=== PATIENT | female | born 1950 | race African-American/Black ===

== ENCOUNTER 2019-07-29 06:01 | Day surgery (SDC) | payer BC, MEDICAID, MEDICARE, OTHER ==
--- NOTE | 2019-07-25 14:37 | Opthalmology H&P ---
Ophthalmology H&P H&P Chief Complaint: decreased vision in right eye HPI Vision Affects Ability to: read, focus/use eyes together, manage personal affairs HPI Narrative Blurry vision Exam Visual Acuity: OD Coounting fingers OS 20/25 Tension: OD 12 OS 11 Eye Exam: normal OU: external exam, palpebral fissure-width, marginal reflex distance, levator function, corneas, anterior chambers, fundus exam; findings: lens - +4 PSC Cataract OD Assessment/Plan Treatment Plan: cataract extraction w/ lens implant Goals of Treatment: improvement of vision, enhance quality of life Attestation Attestation The risks and benefits of the surgery as well as alternative procedures were explained to the patient in detail. Brandon Stone MD Jul 25, 2019 14:37
--- NOTE | 2019-07-25 14:39 | Pre-Procedure Note/Attestation ---
Pre-Procedure Note/Attestation Complete Prior to Procedure Planned Procedure: right Procedure Narrative: Cataract extraction with IOL implant right eye Indications for Procedure Pre-Operative Diagnosis: Posterior subcapsular cataract right eye Attestation I attest that I discussed the nature of the procedure; its benefits; risks and complications; and alternatives (and the risks and benefits of such alternatives ), prior to the procedure, with the patient (or the patient's legal sales representative [employer]). I attest that, if there was a reasonable possibility of needing a blood transfusion, the patient (or the patient's legal sales representative [employer]) was given the [facility] standardized written summary, pursuant to the Fredi Nino Blood Safety Act ([place] Health and Safety Code # 1645, as amended). I attest that I re-evaluated the patient just prior to the surgery and that there has been no change in the patient's H&P, except as documented below: Brandon Stone MD Jul 25, 2019 14:39
[2019-07-29] VITALS (8 sets, daily range): BP systolic 121–135; BP diastolic 69–78
[~2019-07-29] VITALS: Ht 175.3 cm; Wt 74.8 kg
[~2019-07-29 06:01] MED LIST: AMLODIPINE BESYL5 MG ORAL; HYDROCHLOROTHIA25 MG ORAL
[2019-07-29] MEDS: Tropicamide 1% Opth 15ml Soln RIGHT EYE SCH ×3 (06:31→06:47)
[2019-07-29] MEDS: Cyclopentolate 1% Opth Sol 2ml RIGHT EYE SCH ×3 (06:32→06:47)
[2019-07-29] MEDS: Tobramycin Op Soln 0.3% 5ml RIGHT EYE SCH ×3 (06:32→06:47)
[2019-07-29] MEDS: Phenylephrine 10% Opth Soln 5ml RIGHT EYE SCH ×3 (06:32→06:47)
[2019-07-29] MEDS ORDERED: Tetracaine 0.5% Opth 4ml Soln RIGHT EYE ONE (07:00)
[2019-07-29] MEDS ORDERED: Proparacaine 0.5% Opth Soln 15ml RIGHT EYE ONE (07:00)
[2019-07-29] MEDS ORDERED: Akten 3.5% 1ml Btl RIGHT EYE ONE (07:00)
[2019-07-29] MEDS ORDERED: Diclofenac Sod 0.1% Op Soln RIGHT EYE SCH (07:00)
[2019-07-29] MEDS ORDERED: BSS 500ml btl ONE (07:15)
[2019-07-29] MEDS ORDERED: BSS 15ml BTL ONE (07:15)
[2019-07-29] MEDS ORDERED: Povidone-Iodine 5% opth solution ONE (07:16)
[2019-07-29] MEDS ORDERED: Sodium Hyaluronate 10 mg/ml 0.85ml ONE ×2 (07:16→08:37)
[2019-07-29] MEDS ORDERED: LR 1000ml ONE (07:30)
[2019-07-29] MEDS ORDERED: NS Irrig 1000ml ONE (07:30)
[2019-07-29] MEDS ORDERED: Sterile Water Irrig 1000ml IRRIG ONE (07:30)
[2019-07-29] MEDS ORDERED: Midazolam 2mg/2ml Inj ONE (07:48)
[2019-07-29] MEDS ORDERED: fentaNYL 100 mcg/2 mL IV ONE (07:48)
--- NOTE | 2019-07-29 08:32 | Immediate Post-Op Evaluation ---
Immediate Post-Op Evalulation Immediate Post-Op Evalulation Procedure: cataract extraction right eye with IOL Date of Evaluation: Jul 29, 2019 Time of Evaluation: 08:32 IV Fluids: 500 Blood Pressure Systolic: 131 Blood Pressure Diastolic: 77 Pulse Rate: 58 Respiratory Rate: 14 O2 Sat by Pulse Oximetry: 98 Temperature (Fahrenheit): 97.3 Nausea: No Vomiting: No Complications none Patient Status: awake, reacts, patent Hydration Status: adequate Drug: none Danya Moe CRNA Jul 29, 2019 08:32
--- NOTE | 2019-07-29 08:34 | Anethesia Preoperative Eval ---
Anesthesia Pre-op PMH/ROS General Date of Evaluation: Jul 29, 2019 Time of Evaluation: 07:35 Anesthesiologist: anselmo ASA Score: ASA 2 Mallampati Score Class I : Soft palate, uvula, fauces, pillars visible Class II: Soft palate, uvula, fauces visible Class III: Soft palate, base of uvula visible Class IV: Only hard plate visible Mallampati Classification: Class II Surgeon: ra Diagnosis: cataract Surgical Procedure: cataract extraction Anesthesia History: none Family History: no anesthesia problems Allergies: Coded Allergies: No Known Allergies (Unverified , 07/29/19) Medications: see eMAR Patient NPO?: Yes NPO Date: Jul 29, 2019 NPO Time: 00:01 Past Medical History Cardiovascular: Reports: HTN; Denies: CAD, [place], valve dz, arrhythmia, other Pulmonary: Denies: asthma, COPD, ALYSIA, other Gastrointestinal/Genitourinary: Denies: GERD, CRI, ESRD, other Neurologic/Psychiatric: Denies: dementia, CVA, depression/anxiety, TIA, other Endocrine: Denies: DM, hypothyroidism, steroids, other HEENT: Reports: cataract (R) Hematology/Immune: Denies: anemia, DVT, bleeding disorder, other Anesthesia Pre-op Phys. Exam Physician Exam Last Vital Signs Date Time Temp Pulse Resp B/P (MAP) Pulse Ox O2 Delivery O2 Flow Rate FiO2 07/29/19 06:43 Room Air 07/29/19 06:39 97.8 61 18 134/77 96 Constitutional: NAD Neurologic: CN 2-12 intact Cardiovascular: RRR Respiratory: CTA Gastrointestinal: S/NT/ND Airway Exam Mallampati Classification 2 Mallampati Score: Class II MO: full ROM: full Dentures: no upper, no lower Anesthesia Pre-op A/P Studies Pre-op Studies: EKG - sr Risk Assessment & Plan Assessment: denies changes in health Plan: mac Status Change Before Surgery: No Pre-Antibiotics Drug: declined Danya Moe CRNA Jul 29, 2019 08:34
[2019-07-29] MEDS ORDERED: Tobramycin Op Soln 0.3% 5ml RIGHT EYE SCH (09:30)
[2019-07-29] MEDS ORDERED: Ciprofloxacin Opth Soln 5ml RIGHT EYE ONE (11:00)
--- NOTE | 2019-07-29 11:38 | 48 Hour Post Anesthesia Eval ---
Post Anesthesia Evaluation Procedure: cataract extraction right eye with IOL Date of Evaluation: Jul 29, 2019 Time of Evaluation: 11:37 Blood Pressure Systolic: 121 0: 70 Pulse Rate: 63 Respiratory Rate: 14 O2 Sat by Pulse Oximetry: 98 Airway: patent Nausea: No Vomiting: No Hydration Status: adequate Cardiopulmonary Status: stable Mental Status/LOC: patient returned to baseline Follow-up Care/Observations: none Post-Anesthesia Complications: none Follow-up care needed: N/A Danya Moe CRNA Jul 29, 2019 11:38
--- NOTE | 2019-07-29 14:36 | Brief Operative Note ---
Immediate Post Operative Note Operative Note Chief Complaint: Blurry vision Pre-op Diagnosis: Posterior subcapsular cataract right eye Procedure: Cataract extraction with IOL implant right eye Post-op Diagnosis: Pseudophakia OD Findings: consistent w/pre-op dx studies Surgeon: Brandon Stone MD Anesthesiologist: Danya Moe CRNA Anesthesia: MAC Specimen: none Complications: none Condition: stable Fluids: LR Estimated Blood Loss: none Drains: none Implant(s) used?: Yes - IOL- OD Brandon Stone MD Jul 29, 2019 14:36
--- NOTE | 2019-07-29 14:44 | Operative Note - PDOC ---
Operative Note Operative Note Date of Operation/Procedure: Jul 29, 2019 Chief Complaint: Blurry vision Pre-op Diagnosis: Posterior subcapsular cataract right eye Procedure: Cataract extraction with IOL implant right eye Post-op Diagnosis: Pseudophakia OD Operative Findings: consistent w/pre-op dx studies Surgeon: Brandon Stone MD Anesthesiologist: Danya Moe CRNA Anesthesia: MAC Specimen: none Complications: none Condition: stable Fluids: LR Estimated Blood Loss: none Drains: none Implant(s) used?: Yes - IOL-OD Indications for Procedure Posterior subcapsular cataract right eye Description of Procedure This patient has been complaining visually significant cataract in the right eye with the best corrected visual acuity of counting fingers. The patient complains of frequent headaches caused by visual imbalance as visual acuity on left eye is 20/25 with correction, patient also complains of difficulties in performing activities of daily living and wants to manage personal affairs with comfort and accuracy and see well enough to move with safety at home and outdoors. The risks, benefits and alternatives of the procedure were discussed with the patient in the office prior to scheduling surgery. All questions from the patient were answered after the surgical procedure was explained in detail. The risks of the procedure as explained to the patient include, but are not limited to, pain, infection, bleeding, loss of vision, retinal detachment, need for further surgery, loss of lens nucleus, double vision, etc. Alternative procedures were discussed which include, to do nothing or seek a second opinion. Informed consent for this procedure was obtained from the patient. The patient was referred to a primary care physician for a cardiopulmonary clearance prior to surgery, after proper evaluation was done patient was properly scheduled for outpatient surgery. The patient was brought to the operating room where the anesthesiologist established I.V. lines and cardiac monitoring leads. Mild intravenous sedation was administered. The patient was then prepared with a 5% solution of povidone -iodine to the conjunctival fornix and lashes, and a 5% solution of povidone- iodine to the lids and periorbital skin. The patient was then draped in the usual sterile fashion. A lid speculum was then placed in the operative eye. A keratome blade was then used to create a biplanar incision into the anterior chamber. Viscoelastics was then instilled into the anterior chamber. A capsulorrhexis was then fashioned with an utrata forceps. The lens nucleus was hydrodissected and hydrodelineated with a G 27 Cannula. Paracentesis incision was made at 3 o'clock with sharp blade. The phacoemulsification unit, after being properly adjusted and tested, was then used to emulsify the nucleus followed by aspiration and irrigation of residual cortical material. Healon was then instilled into the anterior chamber. The corneal wound was then enlarged to the size of the optic with the dax keratome blade. The intraocular lens was then inspected for right power and size and thought to be satisfactory. Then the lens was gently placed in the capsular bag. Positioning within the capsular bag was confirmed by direct visualization. Optic centration was accomplished with a Sinskey hook. Viscoelastics was removed from the anterior chamber using the irrigation and aspiration unit. The corneal wound was then tested for leaks and none were found. The lid speculum were then removed. Sponge and needle counts were correct. An eye patch and shield were placed over the operative eye. The patient was taken to the recovery room in stable condition. There were no complications. The patient tolerated the procedure well. The patient was then transferred to the ambulatory surgery unit in stable and satisfactory condition , was given detailed written instructions and asked to follow up in the office the next day. Brandon Stone MD Jul 29, 2019 14:44
== END 2019-07-29 09:25 | disposition home or self-care (01) ==
LOC: SUR 06:01
DX: H25.041 Posterior subcapsular polar age-related cataract, right eye (principal); I10 Essential (primary) hypertension
CPT/HCPCS: 66984; 94003; J2250; J3010; J3370; J7120; V2632; 94150